=== PATIENT | female | born 1995 | race African-American/Black ===

== ENCOUNTER 2018-06-06 12:49 | Emergency (ER) | payer SELFPAY ==
[2018-06-06 13:38] LABS: Mean Corpuscular HGB CONC 28.9 g/dL (32.0-36.0); Mean Corpuscular Hemoglobin 21.3 pg (27.0-31.0); Mean Corpuscular Volume 73.6 fL (78.0-98.0); Mean Platelet Volume 10.1 fL (7.4-10.4); Platelet Count 301 thou/uL (130-400); RBC Distribution Width 20.1 % (11.5-14.5); Red Blood Cell (RBC) Count 4.23 mill/uL (4.20-5.40); White Blood Cell (WBC) Count 7.8 thou/uL (4.8-10.8)
[2018-06-06] MEDS ORDERED: Ondansetron PF 4 MG/2 ML Vial ONE (13:41)
[2018-06-06 13:53] LABS: ALT (SGPT) 11 U/L (8-55); AST (SGOT) 17 U/L (5-34); Albumin 3.9 g/dL (3.5-5.0); Alkaline Phosphatase 91 U/L (40-150); Anion Gap 10 mmol/L (10-20); BUN (Urea Nitrogen) 8 mg/dL (7.0-18.7); Bilirubin, Total Less than 0.2 mg/dL (0.2-1.2); Calc. Creatinine Clearance 0 mL/min (70-130); Calcium 9.2 mg/dL (7.8-10.44); Carbon Dioxide 22 mmol/L (22-29); Chloride 109 mmol/L (98-107); Estimated GFR-MDRD 90; Globulin 3.9 g/dL (2.4-3.5); Glucose 112 mg/dL (70-105); Potassium 3.1 mmol/L (3.5-5.1); Protein, Total 7.8 g/dL (6.0-8.3); Sodium 138 mmol/L (136-145)
[2018-06-06 13:55] LABS: Bilirubin Negative (Negative); Blood, Urine Large (Negative); Clarity TURBID (Clear); Glucose, Urine (Dipstick) Negative (Negative); Leukocyte Small (Negative); Nitrite Negative (Negative); Protein, Urine (Dipstick) 100 mg/dL (Neg-Trace); Specific Gravity, Urine 1.021 (1.002-1.036); Urobilinogen 0.2 mg/dL (0.2-1.0); pH, Urine 5.5 (5.0-9.0)
[2018-06-06 13:57] LABS: #Lymphocytes 1.1 thou/uL (1.20-3.40); #Monocytes 0.4 thou/uL (0.11-0.59); #Neutrophils 6.2 thou/uL (1.40-6.50); %Basophils 0.5 % (0.0-1.0); %Eosinophils 0.5 % (0.0-10.0); %Lymphocytes 14.2 % (21.0-51.0); %Monocytes 4.9 % (0.0-10.0); %Neutrophils 79.9 % (42.0-75.0); Anisocytosis SLIGHT = 6-15 cells (100X) (0-5/hpf); Hypochromia SLIGHT = 6-15 cells (100X) (0-5/hpf); MDiff Complete? YES; Microcytosis SLIGHT = 6-15 cells (100X) (0-5/hpf); PLT Morphology Comment Appears Adequate
[2018-06-06 14:00] LABS: RBC/HPF GREATER THAN 50-TNTC HPF (0-3)
[2018-06-06] MEDS ORDERED: Ketorolac Tromethamine 30 MG/ML VIAL ONE (14:01)
[2018-06-06 14:02] LABS: Pathc Cast-AUWi Flag 5.81 (0-2.49)
[2018-06-06] MEDS ORDERED: Potassium Chloride 20 MEQ TAB ONE (14:02)
[2018-06-06 14:03] LABS: Pregnancy Test - Urine (BHCG) Negative (Negative); Pregu Control Background? CLEAR/WHITE (CLR/WHITE); Pregu Control Bar Appear? YES (CONTROL BAR); Specific Gravity 1.021 (1.002-1.036)
[2018-06-06 14:12] LABS: Bacteria/HPF 1+ HPF (None Seen); Hyaline Casts/LPF NONE SEEN LPF (0-3 Hyaline)
[2018-06-06 14:15] LABS: Crystals/HPF 2+ URIC ACID HPF (Negative)
[2018-06-06] MEDS ORDERED: cefTRIAXone\\ROCEPHIN 1 GM VIAL ONE (14:56)
--- NOTE | 2018-06-06 15:37 | CT ---
CT ABDOMEN AND PELVIS WITHOUT IV CONTRAST: Date: 06/06/18 Multiple axial tomograms obtained through the abdomen and pelvis without IV enhancement. INDICATION: Right flank pain. Nausea. No comparison. FINDINGS: Lung bases clear. Liver and spleen unremarkable. Spleen is upper normal size, measured at up to 13.0 cm. Pancreas unrem arkable. There is right hydronephrosis. Dilatation of the right ureter is seen to the bladder. The bladder is not well distended and not well evaluated. There are tiny calcifications near the right distal ureter ; however, these are not confirmed to lie within the ureter. Etiology for the right hydronephrosis is not confirmed on this exam. Small bowel loops appear normal. Appendix is identified and is unremarkable. There is a large amount of stool in the right colon. The left colon is nondistended. Images through the pelvis show a prominent uterus. The uterus and adnexa cannot be adequately evaluat ed on this unenhanced study. No free fluid seen. IMPRESSION: Right hydronephrosis. Etiology for the right hydronephrosis is not confirmed on this exam. The uterus and adnexa appear prominent, which may be related. Consider postcontrast exam with delayed images fo llowing a urographic protocol to better assess the pelvic findings and collecting structures. POS: ISAI
== END 2018-06-06 15:52 | disposition home or self-care (01) ==
LOC: ERS 12:49
DX: N13.2 Hydronephrosis with renal and ureteral calculous obstruction (principal); R31.9 Hematuria, unspecified
CPT/HCPCS: 36415; 74176; 80053; 81003; 81015; 81025; 85025; 87077; 87086; 96361; 96365; 96375; J0696; J1885; J2405

== ENCOUNTER 2019-05-17 20:04 | Inpatient (IN) | payer MEDICAID ==
[2019-05-17] MEDS ORDERED: Lidocaine 1% (PF) 30 ML VIAL ONE (20:12)
[2019-05-17] MEDS: NS / Oxytocin 40 units/1000ml 1,000 ML IV SCH ×2 (20:20→21:42)
--- NOTE | 2019-05-17 20:29 | PDOC.LDHP ---
Labor and Delivery H&P HPI: Patient arrived by EMS straight to L[facility]3...HENRIETTA norman at introitus No PNC HX CS x2 24 yo AA CVS x 2 states "40 weeks" with imminenet delivery. Denies other issues. CS x2. Review of Systems: complete and as per HPI Current gestational age (weeks): 40 (by her account) Dating criteria: last menstrual period Grav: 4 Para: 3 OB History Details: CS x2, no prenata; care; HX twins x 1 Current complications: none Abnormal US findings: No Current medications: pre-tyrone vitamins Previous surgical history: low tranverse CS (X2) Social history: none - Physical Exam Vital signs reviewed and normal: yes (140/60 during delievry Pulse 96) General: NAD Abdomen: gravid [place] contractions every: FHTS were 130s; immeninet delivery - Vaginal Exam cm dilated: 10 Effacement: 100% Station: 3+ - Assessment L&D Assessment: term patient in labor No care - Plan Plan: admit to L&D, other (Delivery imminent; AROM at 2013...thin mec; NICU here for delivery; get OB labs)
--- NOTE | 2019-05-17 20:32 | PDOC.OPDEL ---
OB Operative/Delivery Note Delivery Dr/Surgeon: Rl Assist: Kosta Tesfaye (M3) Pre-Delivery Diagnosis: active labor, other (CS x2) Procedure/Post Delivery Dx: vaginal delivery after CS Weeks gestation: 40 (by her account) Anesthesia: none - Findings A Sex: female - 1 min: 8 - 5 min: 9 - Additional Findings/Plan Placenta delivered: spontaneous (Mac stained; Burton mechanism at 2022) Estimated blood loss: 200 Compilations/Other Findings: AROM just prior to Delivery: thin mec baby vigorous Delayed cord clamp for 1 min No NC 3vc, intact placenta Gases attempted but arterial cord gas not able to be obtained due to cord sample No perineal lacs noted NICU present Post delivery plan: routine recovery
[2019-05-17 20:33] LABS: Hemoglobin 9.2 g/dL (12.0-16.0); Mean Corpuscular HGB CONC 31.3 g/dL (32.0-36.0); Mean Corpuscular Hemoglobin 21.9 pg (27.0-31.0); Mean Platelet Volume 9.4 fL (7.4-10.4); Platelet Count 281 thou/uL (130-400); RBC Distribution Width 17.8 % (11.5-14.5); Red Blood Cell (RBC) Count 4.18 mill/uL (4.20-5.40); White Blood Cell (WBC) Count 11.2 thou/uL (4.8-10.8)
[2019-05-17] MEDS ORDERED: Lanolin Ointment 7 GM TUBE TOP PRN (20:35)
[2019-05-17] MEDS ORDERED: Preparation H Ointment 28 GM TUBE PR PRN (20:35)
[2019-05-17] MEDS ORDERED: Bisacodyl 10 MG SUPP PR PRN (20:35)
[2019-05-17] MEDS ORDERED: Benzocaine-Menthol 82.5 ML CAN TOP PRN (20:35)
[2019-05-17] MEDS ORDERED: Milk Of Magnesia 30 ML UDCUP PO PRN (20:35)
[2019-05-17] MEDS ORDERED: hydrALAZINE 20 MG/ML VIAL SLOW IVP PRN (20:35)
[2019-05-17] MEDS ORDERED: Acetaminophen/Codeine 30-300mg Tablet PO PRN ×2 (20:35)
[2019-05-17 21:05] LABS: Syphilis Antibody Nonreactive (Nonreactive); Syphilis Antibody Index 0.26 S/CO (<1.00 Non-Reactive)
[2019-05-17 21:08] VITALS: BMI 32.5
[2019-05-17 22:07] LABS: Amphetamine Not Detected (NotDetected); Barbiturates Screen Not Detected (NotDetected); Benzodiazepine Screen Not Detected (NotDetected); Cocaine Metabolite Screen Not Detected (NotDetected); Medtox Control Line Valid? VALID (VALID); Medtox Reader # READER 4; Methadone Not Detected (NotDetected); Methamphetamine Not Detected (NotDetected); Opiate Screen Not Detected (NotDetected); Oxycodone Screen Not Detected (NotDetected); Phencyclidine (PCP) Not Detected (NotDetected); THC/Cannabinoid Screen Not Detected (NotDetected); Tricyclic Screen Not Detected (NotDetected)
[2019-05-17] MEDS: Docusate Calcium (SURFAK) 240 MG CAP PO SCH (22:55)
[2019-05-17] MEDS: Ibuprofen 800 MG TAB PO SCH (22:55)
[2019-05-17 23:01] LABS: HBSAg Index 0.19 S/CO (0-0.99); HIV (1/2) Antibody/Antigen Non-Reactive (NonReactive); HIV 1/2 INDEX 0.05 S/CO (<1.00); Hep B Surf Ag Non-Reactive S/CO (NonReactive)
[2019-05-18] MEDS: Ibuprofen 800 MG TAB PO SCH ×3 (06:00→20:01)
[2019-05-18] MEDS ORDERED: Sodium Chloride 0.9% 10 ML ONE (06:10)
--- NOTE | 2019-05-18 06:33 | PDOC.PP ---
Post Progress Note Post Day #: 0 to 1 Subjective: Doing well PO intake tolerated: yes Flatus: yes Ambulation: yes Vital Signs (12 hours) Temp Pulse Resp BP 05/18/19 06:03 98.2 F 80 18 99/56 L 05/18/19 03:20 98.0 F 75 20 127/65 05/18/19 00:25 98.4 F 71 20 118/58 L 05/17/19 23:25 98.0 F 83 20 118/56 L 05/17/19 20:17 91 18 108/55 L Weight Weight 208 lb - Physical Examination General: NAD Abdominal: lochia, no distention, appropriately TTP Extremities: negative homans (B) Skin: no rash Neurological: no gross focal deficits Psychiatric: A&Ox3, normal affect Result Diagrams: 05/17/19 20:15 Additional Labs: Post Labs Blood Type O POSITIVE 05/17/19 21:48 Hep Bs Antigen Non-Reactive S/CO (NonReactive) 05/17/19 20:15 (1) Vaginal after Code(s): O34.219 - MATERNAL CARE FOR UNSP TYPE SCAR FROM PREVIOUS DEL Status: Acute - Assessment/Plan PPD1 this PM... after CS x2..doing well. baby well As we do not have any information, we will monitor today and plan on AM DC to home Friday (tomorrow) AM Labs reviewed
[2019-05-18] MEDS ORDERED: Adacel (T-DAP) 0.5 ML SYRINGE IM ONE (09:00)
[2019-05-18] MEDS ORDERED: FLU VACC QS2019-20(6MOS UP)/PF 60 MCG/0.5 ML SYRINGE IM ONE (09:00)
[2019-05-18] MEDS ORDERED: Measles/Mumps/Rubella 10 MCG/0.5 ML VIAL SC ONE (09:00)
[2019-05-18] MEDS ORDERED: Varicella virus, LIVE 0.5 ML VIAL SC ONE (09:00)
[2019-05-18] MEDS: Docusate Calcium (SURFAK) 240 MG CAP PO SCH ×2 (09:58→20:02)
[2019-05-18] MEDS: Prenatal Vitamin 1 TAB PO SCH (09:58)
[2019-05-18] MEDS: Ferrous Sulfate 325 MG TAB PO SCH ×2 (09:58→20:02)
[2019-05-19] MEDS: Ibuprofen 800 MG TAB PO SCH (05:14)
[2019-05-19 07:12] LABS: Hemoglobin 6.8 g/dL (12.0-16.0); Mean Corpuscular HGB CONC 30.8 g/dL (32.0-36.0); Mean Corpuscular Hemoglobin 22.1 pg (27.0-31.0); Mean Corpuscular Volume 71.6 fL (78.0-98.0); Mean Platelet Volume 8.6 fL (7.4-10.4); Platelet Count 216 thou/uL (130-400); RBC Distribution Width 17.7 % (11.5-14.5); Red Blood Cell (RBC) Count 3.08 mill/uL (4.20-5.40); White Blood Cell (WBC) Count 11.4 thou/uL (4.8-10.8)
--- NOTE | 2019-05-19 07:13 | DIS ---
DATE OF ADMISSION: 05/17/2019 DATE OF DISCHARGE: 05/19/2019 ADMITTING DIAGNOSES: 1. No care. 2. Prior x2. 3. Labor with imminent delivery. DISCHARGE DIAGNOSES: 1. No care. 2. Prior x2. 3. Labor with imminent delivery. PROCEDURE: Term spontaneous vaginal delivery. HOSPITAL COURSE: The patient is a 24-year-old female, who presented to Labor and Delivery with no care and in active labor. When she arrived, she was complete, +3 and quickly delivered a female by term spontaneous vaginal delivery. Her course has been uncomplicated. Today is day 2. She reports tolerating p.o., voiding on her own having decreased lochia and good pain control. PHYSICAL EXAMINATION: VITAL SIGNS: This morning, blood pressure is 100/62, temperature 98.0, pulse of 82, respiratory rate of 16. GENERAL: She appears to be in no acute distress. She is alert, oriented, cooperative, and pleasant to interact with. Fundus is firm. EXTREMITIES: Nontender nonedematous. Her post-delivery hemoglobin is not available. Her pre-delivery hemoglobin was 9.2, hematocrit 29.2 with MCV of 70, platelets 281,000. The patient will be discharged to home. Prior to that, we will be getting a CBC this morning just to re-evaluate her level of anemia. She will be going home on ibuprofen. She has been given instructions as she does not have any OB provider, [place] [facility] [place] for routine visit. She has been instructed to seek medical attention sooner if she has increased bleeding, pain, or fever. Job ID: [id number]
[2019-05-19] MEDS: Prenatal Vitamin 1 TAB PO SCH (07:56)
[2019-05-19] MEDS: Ferrous Sulfate 325 MG TAB PO SCH (07:56)
[2019-05-19] MEDS: Docusate Calcium (SURFAK) 240 MG CAP PO SCH (07:56)
--- NOTE | 2019-05-19 09:07 | PDOC.EVN ---
Event Note - Event Note Event Note: Lab check: HCT 22. Patient is ASX with pulse in 60s-70s. As asymptomatic, we will do outpatient /Fe suppliemnetation. OK for DC to home.
[2019-05-19 12:06] VITALS: BP 123/75; TEMP 98.2
--- NOTE | 2019-05-20 08:16 | PQF ---
[employer] Crystal Reports Winform [facility] JANICE CASTRO MD [id number] CLINICAL DOCUMENTATION CLARIFICATION FORM: POST DISCHARGE Addendum to original discharge summary date: 05/19/19 Late entry note date: 05/26/19 DATE:05-20-2019 ATTN:Cornelio Villeda Please exercise your independent, professional judgment in responding to the clarification form. Clinical indicators are provided on the bottom of this form for your review Can you please specify the type of anemia based on clinical indicators below. Please check appropriate box(s): [ x] Acute blood loss anemia [ ] Post-op anemia related to acute blood loss [x ] Other diagnosis please specify_chronic anemia [ ] Unable to determine In addition, please specify: Present on Admission (POA): [x ] Yes [ ] No [ ] Unable to determine For continuity of documentation, please document condition throughout progress notes and discharge summary. Thank You. CLINICAL INDICATORS: HP 05/[address] Shine patient arrived by EMS straight LDR3 Labor and delivery notes 05/[address] Shine vaginal delivery after CS Labor and delivery notes 05/[address] Shine AQH=[id number] DS 05/[address] Laureano CBC this morning just to re evaluate her level of anemia Laboratory: Hgb=9.2, 6.8 Hct=29.2, 22.0 QBL 275cc RISK FACTORS: HP- Low trabsverse CS x2 Delivery Note- vaginal deliver HP-40 weeks AOG TREATMENT: DS- CBC monitoring MAR- Ferrous Sulfate (This form is maintained as a part of the permanent medical record) 2014 [employer] All Rights Reserved Parul [email or web address] [not provided] MTDD
== END 2019-05-19 13:40 | disposition home or self-care (01) | DRG 806 ==
LOC: L&D/OP 20:04 → L&D 20:43 → EEVIPCON 20:43 → 3SW 23:26
PROVIDERS: ADMIT Obstetrics & Gynecology; ATTEND Obstetrics & Gynecology
PROC: 10E0XZZ Delivery of Products of Conception, External Approach (ICD-10-PCS; principal; 2019-05-18)
PROC: 10907ZC Drainage of Amniotic Fluid, Therapeutic from Products of Conception, Via Natural or Artificial Opening (ICD-10-PCS; 2019-05-18)
PROC: 3E02340 Introduction of Influenza Vaccine into Muscle, Percutaneous Approach (ICD-10-PCS; 2019-05-18)
PROC: 3E0234Z Introduction of Serum, Toxoid and Vaccine into Muscle, Percutaneous Approach (ICD-10-PCS; 2019-05-18)
DX: O77.0 Labor and delivery complicated by meconium in amniotic fluid (principal); D62 Acute posthemorrhagic anemia; Z37.0 Single live birth; O34.211 Maternal care for low transverse scar from previous cesarean delivery; Z3A.40 40 weeks gestation of pregnancy; Z23 Encounter for immunization; O99.02 Anemia complicating childbirth
CPT/HCPCS: 36415; 80306; 85027; 86762; 86780; 86850; 86900; 86901; 87340; 87389; 88307; 99285; J2001

== ENCOUNTER 2023-10-07 17:59 | Inpatient (IN) | payer BC, MEDICAID ==
[2023-10-07] MEDS ORDERED: Acetaminophen 500 MG TAB ONE (19:46)
[2023-10-07] MEDS ORDERED: Ketorolac Tromethamine 30 MG (1 mL) VIAL ONE (20:24)
[2023-10-07 23:06] VITALS: BMI 34.4
[2023-10-08] MEDS: Ondansetron PF 4 MG/2 ML Vial IVP PRN (00:58)
[2023-10-08] MEDS: Morphine 2 MG/ML VIAL SLOW IVP PRN (00:59)
[2023-10-08] MEDS: Sodium Chloride 0.9% 1,000 ML IV SCH (00:59)
[2023-10-08] MEDS: Benzocaine 20% Spray 60 ML CAN PO SCH (03:50)
[2023-10-08] MEDS: Ketorolac Tromethamine 30 MG (1 mL) VIAL IVP PRN (03:50)
[2023-10-08] MEDS: Polyethylene Glycol 3350 17 GM Packet PO SCH (07:49)
[2023-10-08] MEDS: Senokot S 8.6-50 MG TAB PO SCH (07:50)
[2023-10-08] MEDS ORDERED: MD-Gastroview 120 ML BOT ONE (07:52)
[2023-10-08 08:06] LABS: #Monocytes 1.5 thou/uL (0.11-0.59); #Neutrophils 9.9 thou/uL (1.40-6.50); %Basophils 0.2 % (0.0-1.0); %Eosinophils 0.1 % (0.0-10.0); %Lymphocytes 9.1 % (21.0-51.0); %Monocytes 12.1 % (0.0-10.0); %Neutrophils 77.9 % (42.0-75.0); Hematocrit 23.9 % (36.0-47.0); Hemoglobin 6.9 g/dL (12.0-16.0); Mean Corpuscular HGB CONC 28.9 g/dL (32.0-36.0); Mean Corpuscular Hemoglobin 21.6 pg (27.0-31.0); Mean Corpuscular Volume 74.9 fl (78.0-98.0); Mean Platelet Volume 9.1 fL (7.4-10.4); Platelet Count 266 10x3/uL (130-400); RBC Distribution Width 18.5 % (11.5-14.5); Red Blood Cell (RBC) Count 3.19 mill/uL (4.20-5.40); White Blood Cell (WBC) Count 12.7 10x3/uL (4.8-10.8)
[2023-10-08 08:22] LABS: INR-International Normal Ratio 1.3
[2023-10-08 08:24] LABS: ALT (SGPT) 10 U/L (8-55); AST (SGOT) 18 U/L (5-34); Albumin 3.1 g/dL (3.5-5.0); Alkaline Phosphatase 58 U/L (40-110); Anion Gap 11 mmol/L (10-20); BUN (Urea Nitrogen) 9 mg/dL (7.0-18.7); Bilirubin, Total 0.5 mg/dL (0.2-1.2); Calc. Creatinine Clearance 183 mL/min (70-130); Calcium 8.2 mg/dL (7.8-10.44); Carbon Dioxide 23 mmol/L (22-29); Chloride 108 mmol/L (98-107); Estimated GFR 117; Globulin 3.2 g/dL (2.4-3.5); Glucose 92 mg/dL (70-105); Magnesium 2.2 mg/dL (1.6-2.6); Phosphorus 1.6 mg/dL (2.3-4.7); Potassium 3.5 mmol/L (3.5-5.1); Protein, Total 6.3 g/dL (6.0-8.3); Sodium 138 mmol/L (136-145)
[2023-10-08 08:30] LABS: CellaVision Operator ID LAB.KW3; Hypochromia SLIGHT = 6-15 cells HPF (0-5); Platelet Adequacy Comment Platelets Normal; Schistocytes SLIGHT = 2-5 cells HPF (0-1)
[2023-10-08] MEDS: Scopolamine 1 mg/72 hour Patch TD SCH (09:30)
[2023-10-08] MEDS: Potassium Phosphate 30 MMOL in Sodium Chloride 0.9% 250 ML 250 ML IVPB SCH (18:15)
[2023-10-08] MEDS: Phenol 177 ML BOT PO PRN (21:26)
[2023-10-09 05:18] LABS: #Eosinphils 0.1 thou/uL (0.0-0.7); #Neutrophils 8.4 thou/uL (1.40-6.50); %Basophils 0.2 % (0.0-1.0); %Eosinophils 0.5 % (0.0-10.0); %Lymphocytes 7.2 % (21.0-51.0); %Monocytes 9.6 % (0.0-10.0); %Neutrophils 82.1 % (42.0-75.0); Hematocrit 25.7 % (36.0-47.0); Hemoglobin 7.3 g/dL (12.0-16.0); Mean Corpuscular HGB CONC 28.4 g/dL (32.0-36.0); Mean Corpuscular Hemoglobin 21.5 pg (27.0-31.0); Mean Corpuscular Volume 75.8 fl (78.0-98.0); Mean Platelet Volume 9.6 fL (7.4-10.4); Platelet Count 304 10x3/uL (130-400); RBC Distribution Width 18.8 % (11.5-14.5); Red Blood Cell (RBC) Count 3.39 mill/uL (4.20-5.40); White Blood Cell (WBC) Count 10.3 10x3/uL (4.8-10.8)
[2023-10-09 05:24] LABS: INR-International Normal Ratio 1.2
[2023-10-09 05:37] LABS: Anion Gap 14 mmol/L (10-20); BUN (Urea Nitrogen) 11 mg/dL (7.0-18.7); Calc. Creatinine Clearance 193 mL/min (70-130); Calcium 8.5 mg/dL (7.8-10.44); Carbon Dioxide 24 mmol/L (22-29); Chloride 110 mmol/L (98-107); Estimated GFR 121; Glucose 92 mg/dL (70-105); Magnesium 2.4 mg/dL (1.6-2.6); Phosphorus 1.7 mg/dL (2.3-4.7); Potassium 3.6 mmol/L (3.5-5.1); Sodium 144 mmol/L (136-145)
[2023-10-10] MEDS: Acetaminophen 325 MG TAB PO SCH (09:14)
[2023-10-10 13:30] VITALS: BP 124/55; TEMP 98.7
[2023-10-10] MEDS ORDERED: Enoxaparin 40 MG (0.4 mL) SYRINGE SC SCH (21:00)
== END 2023-10-10 16:10 | disposition home or self-care (01) | DRG 390 ==
LOC: ERS 17:59 → SURG A 20:29
PROVIDERS: ADMIT Student in an Organized Health Care Education/Training Program; ATTEND Student in an Organized Health Care Education/Training Program
PROC: 0D9670Z Drainage of Stomach with Drainage Device, Via Natural or Artificial Opening (ICD-10-PCS; principal; 2023-10-07)
DX: K56.609 Unspecified intestinal obstruction, unspecified as to partial versus complete obstruction (principal); K52.9 Noninfective gastroenteritis and colitis, unspecified; Z98.891 History of uterine scar from previous surgery; Z98.890 Other specified postprocedural states
CPT/HCPCS: 36415; 74018; 74019; 74250; 80048; 80053; 83735; 84100; 85025; 85610; 85730; 86850; 86900; 86901; 96374; J1885; J2272; J2405; J7050; Q9963

== ENCOUNTER 2023-11-02 11:56 | Inpatient (IN) | payer BC ==
[~2023-11-02 11:56] MED LIST: Iopamidol-370 76% 500 ML MDV (1 ML CHARGE) ONE
[2023-11-02 12:54] LABS: #Basophils Less than 0.03 10x3/uL (0.0-0.2); #Eosinphils Less than 0.03 10x3/uL (0.0-0.7); %Basophils 0.2 % (0.0-1.0); %Lymphocytes 10.6 % (21.0-51.0); %Neutrophils 82.9 % (42.0-75.0); Hematocrit 30.8 % (36.0-47.0); Hemoglobin 8.8 g/dL (12.0-16.0); Mean Corpuscular HGB CONC 28.6 g/dL (32.0-36.0); Mean Corpuscular Hemoglobin 20.7 pg (27.0-31.0); Mean Corpuscular Volume 72.5 fL (78.0-98.0); Mean Platelet Volume 9.3 fL (7.4-10.4); Platelet Count 402 10x3/uL (130-400); RBC Distribution Width 18.6 % (11.5-14.5); Red Blood Cell (RBC) Count 4.25 mill/uL (4.20-5.40)
[2023-11-02 12:55] LABS: BHCG - Serum Negative (NEGATIVE); Pregs Control Background? CLEAR/WHITE (CLR/WHITE); Pregs Control Bar Appear? YES (CONTROL BAR)
[2023-11-02 13:03] LABS: ALT (SGPT) 13 U/L (8-55); AST (SGOT) 18 U/L (5-34); Albumin 3.8 g/dL (3.5-5.0); Alkaline Phosphatase 75 U/L (40-110); Anion Gap 12 mmol/L (10-20); BUN (Urea Nitrogen) 6 mg/dL (7.0-18.7); Bilirubin, Total 0.2 mg/dL (0.2-1.2); Calc. Creatinine Clearance 0 mL/min (70-130); Carbon Dioxide 23 mmol/L (22-29); Chloride 106 mmol/L (98-107); Estimated GFR 113; Globulin 3.4 g/dL (2.4-3.5); Glucose 116 mg/dL (70-105); Lipase 16 U/L (8-78); Potassium 3.4 mmol/L (3.5-5.1); Protein, Total 7.2 g/dL (6.0-8.3); Sodium 138 mmol/L (136-145)
[2023-11-02 13:07] LABS: Troponin I Less than 0.010 ng/mL (< 0.028)
[2023-11-02] MEDS ORDERED: Ketorolac Tromethamine 30 MG (1 mL) VIAL ONE (13:10)
[2023-11-02] MEDS ORDERED: Ondansetron PF 4 MG/2 ML Vial ONE ×2 (13:10→13:12)
[2023-11-02] MEDS ORDERED: Morphine 4 MG/ML VIAL ONE (13:11)
[2023-11-02 13:15] LABS: Anisocytosis SLIGHT = 6-15 cells HPF (0-5); Hypochromia SLIGHT = 6-15 cells HPF (0-5); Microcytosis SLIGHT = 6-15 cells HPF (0-5); Platelet Adequacy Comment Platelets Normal; Polychromasia SLIGHT = 2-3 cells HPF (0-2); Target Cells SLIGHT = 2-5 cells HPF (0-1)
[2023-11-02] MEDS ORDERED: Piperacillin/Tazobactam 3.375 GM VIAL ONE (14:43)
[2023-11-02] MEDS ORDERED: Sodium Chloride 0.9% 100 ML ONE (14:44)
[2023-11-02] MEDS ORDERED: HYDROmorphone 0.5 MG/0.5 ML SYRINGE ONE (14:53)
[2023-11-02 15:10] LABS: Bacteria/HPF None Seen HPF (None Seen); Bilirubin Negative (Negative); CAUTI Indications for Culture Pelvic or flank pain; Glucose, Urine (Dipstick) Normal (Negative); Ketone, Urine Negative (Negative); Leukocyte Negative Leu/uL (Negative); Nitrite Negative (Negative); Protein, Urine (Dipstick) 20 mg/dL (Neg-Trace); RBC/HPF Greater than 50 HPF (0-3); Specific Gravity, Urine 1.014 (1.002-1.036); Squamous Epithelial 0-3 HPF (0-3); Urobilinogen Normal mg/dL (Less than 2)
[2023-11-02 15:26] LABS: Clarity Very Cloudy (Clear)
[2023-11-02 15:27] LABS: Blood, Urine Large (Negative)
[2023-11-02 15:36] LABS: Urine Culture Reflex No No
[2023-11-02] MEDS ORDERED: Electrolyte Replacement Protocol FS SCH (16:00)
[2023-11-02 16:40] VITALS: BMI 28.0
[2023-11-02] MEDS: Potassium Chloride 20 MEQ TAB PO SCH (17:09)
[2023-11-02] MEDS: Piperacillin/Tazobactam 3.375 GM in Sodium Chloride 0.9% 100 ML IVPB SCH (17:10)
[2023-11-02] MEDS: Morphine 2 MG/ML VIAL SLOW IVP PRN (17:25)
[2023-11-02] MEDS ORDERED: Piperacillin/Tazobactam 3.375 GM in Sodium Chloride 0.9% 100 ML IVPB SCH (20:00)
[2023-11-02] MEDS: Famotidine/PF 20 mg/2ml Vial SLOW IVP SCH (20:39)
[2023-11-02] MEDS: NS 0.9% w/ 20 MEQ KCL 1,000 ML/1,000 ML BAG IV SCH (20:39)
[2023-11-02] MEDS: Ketorolac Tromethamine 30 MG (1 mL) VIAL IVP PRN (20:40)
[2023-11-03 05:38] LABS: #Basophils 0.03 10x3/uL (0.0-0.2); #Eosinphils Less than 0.03 10x3/uL (0.0-0.7); %Basophils 0.2 % (0.0-1.0); %Eosinophils 0.2 % (0.0-10.0); %Lymphocytes 8.6 % (21.0-51.0); %Neutrophils 82.6 % (42.0-75.0); Hematocrit 24.1 % (36.0-47.0); Hemoglobin 6.9 g/dL (12.0-16.0); Mean Corpuscular HGB CONC 28.6 g/dL (32.0-36.0); Mean Corpuscular Hemoglobin 20.9 pg (27.0-31.0); Mean Platelet Volume 9.7 fL (7.4-10.4); Platelet Count 309 10x3/uL (130-400); RBC Distribution Width 18.6 % (11.5-14.5)
[2023-11-03 06:20] LABS: Hypochromia SLIGHT = 6-15 cells HPF (0-5); Microcytosis SLIGHT = 6-15 cells HPF (0-5); Platelet Adequacy Comment Platelets Normal; Polychromasia SLIGHT = 2-3 cells HPF (0-2)
[2023-11-03 06:26] LABS: Anion Gap 10 mmol/L (10-20); BUN (Urea Nitrogen) 7 mg/dL (7.0-18.7); Calc. Creatinine Clearance 132 mL/min (70-130); Carbon Dioxide 25 mmol/L (22-29); Chloride 109 mmol/L (98-107); Estimated GFR 102; Glucose 102 mg/dL (70-105); Potassium 3.9 mmol/L (3.5-5.1); Sodium 140 mmol/L (136-145)
[2023-11-03] MEDS: HYDROcodone/Acetaminophen 5/325 mg Tablet PO PRN (09:08)
[2023-11-03 13:42] LABS: Hematocrit 23.8 % (36.0-47.0); Hemoglobin 6.8 g/dL (12.0-16.0)
[2023-11-03] MEDS: Acetaminophen 325 MG TAB PO PRN (16:17)
[2023-11-03] MEDS: Ondansetron PF 4 MG/2 ML Vial IVP PRN (22:01)
[2023-11-04 04:29] LABS: #Basophils 0.04 10x3/uL (0.0-0.2); %Basophils 0.3 % (0.0-1.0); %Eosinophils 1.2 % (0.0-10.0); %Lymphocytes 11.9 % (21.0-51.0); %Neutrophils 74.2 % (42.0-75.0); Hematocrit 23.2 % (36.0-47.0); Hemoglobin 6.8 g/dL (12.0-16.0); Mean Corpuscular HGB CONC 29.3 g/dL (32.0-36.0); Mean Corpuscular Hemoglobin 21.8 pg (27.0-31.0); Mean Corpuscular Volume 74.4 fL (78.0-98.0); Mean Platelet Volume 9.5 fL (7.4-10.4); Platelet Count 247 10x3/uL (130-400); Red Blood Cell (RBC) Count 3.12 mill/uL (4.20-5.40)
[2023-11-04 04:41] LABS: Anion Gap 11 mmol/L (10-20); BUN (Urea Nitrogen) 7 mg/dL (7.0-18.7); Calc. Creatinine Clearance 146 mL/min (70-130); Calcium 8.2 mg/dL (7.8-10.44); Carbon Dioxide 23 mmol/L (22-29); Chloride 108 mmol/L (98-107); Estimated GFR 115; Glucose 92 mg/dL (70-105); Iron 11 ug/dL (50-170); Iron Binding Capacity, Total 239 mcg/dL (265-497); Potassium 3.2 mmol/L (3.5-5.1); Sodium 139 mmol/L (136-145)
[2023-11-04 04:58] LABS: Anisocytosis SLIGHT = 6-15 cells HPF (0-5); Hypochromia SLIGHT = 6-15 cells HPF (0-5); Microcytosis SLIGHT = 6-15 cells HPF (0-5); Platelet Adequacy Comment Platelets Normal; Polychromasia SLIGHT = 2-3 cells HPF (0-2)
[2023-11-04 05:04] LABS: Ferritin 51.88 ng/mL (10-291); Thyroid Stimulating Hormone 0.8818 uIU/mL (0.35-4.94)
[2023-11-04] MEDS ORDERED: Iron Sucrose Complex 200 MG in Sodium Chloride 0.9% 100 ML IVPB SCH (07:45)
[2023-11-04] MEDS: Potassium Chloride 20 MEQ TAB PO SCH (08:40)
[2023-11-04] MEDS: Famotidine 20 MG TAB PO SCH (08:41)
[2023-11-04] MEDS: Potassium Chloride 20 MEQ in Premix 1 BAG IVPB SCH (08:42)
[2023-11-04] MEDS: Senokot S 8.6-50 MG TAB PO SCH (10:07)
[2023-11-04] MEDS: Ferrous Sulfate 325 MG TAB PO SCH (17:35)
[2023-11-04] MEDS: Iron, Sodium Ferric Gluconate 250 MG in Sodium Chloride 0.9% 250 ML 250 ML IVPB SCH (23:45)
[2023-11-05 05:23] LABS: #Basophils 0.03 10x3/uL (0.0-0.2); %Basophils 0.3 % (0.0-1.0); %Eosinophils 1.4 % (0.0-10.0); %Lymphocytes 11.5 % (21.0-51.0); %Monocytes 11.5 % (0.0-10.0); %Neutrophils 74.9 % (42.0-75.0); Hematocrit 25.9 % (36.0-47.0); Hemoglobin 7.7 g/dL (12.0-16.0); Mean Corpuscular HGB CONC 29.7 g/dL (32.0-36.0); Mean Corpuscular Hemoglobin 21.9 pg (27.0-31.0); Mean Corpuscular Volume 73.8 fL (78.0-98.0); Mean Platelet Volume 9.9 fL (7.4-10.4); Platelet Count 225 10x3/uL (130-400); RBC Distribution Width 19.1 % (11.5-14.5); Red Blood Cell (RBC) Count 3.51 mill/uL (4.20-5.40)
[2023-11-05 06:01] LABS: Anisocytosis SLIGHT = 6-15 cells HPF (0-5); Hypochromia SLIGHT = 6-15 cells HPF (0-5); Microcytosis SLIGHT = 6-15 cells HPF (0-5); Platelet Adequacy Comment Platelets Normal; Polychromasia SLIGHT = 2-3 cells HPF (0-2)
[2023-11-05 06:02] LABS: Anion Gap 11 mmol/L (10-20); BUN (Urea Nitrogen) 6 mg/dL (7.0-18.7); Calc. Creatinine Clearance 167 mL/min (70-130); Calcium 8.5 mg/dL (7.8-10.44); Carbon Dioxide 20 mmol/L (22-29); Chloride 108 mmol/L (98-107); Estimated GFR 122; Glucose 102 mg/dL (70-105); Potassium 3.4 mmol/L (3.5-5.1); Sodium 136 mmol/L (136-145)
[2023-11-05] MEDS: Potassium Chloride 20 MEQ TAB PO SCH (08:28)
[2023-11-05] MEDS ORDERED: Iopamidol-370 76% 500 ML MDV (1 ML CHARGE) ONE (10:04)
[2023-11-05] MEDS ORDERED: Iron Sucrose Complex 200 MG in Sodium Chloride 0.9% 100 ML IVPB SCH (11:15)
[2023-11-05] MEDS: Lactated Ringer's 1,000 ML IV SCH (14:34)
[2023-11-05] MEDS: Iron, Sodium Ferric Gluconate 250 MG in Sodium Chloride 0.9% 250 ML 250 ML IVPB SCH (16:02)
[2023-11-05] MEDS ORDERED: Piperacillin/Tazobactam 3.375 GM VIAL ONE (17:14)
[2023-11-05] MEDS ORDERED: Sodium Chloride 0.9% 100 ML ONE (17:14)
[2023-11-05] MEDS ORDERED: EPINEPHrine 1 MG/ML VIAL ONE (17:46)
[2023-11-05] MEDS ORDERED: Bupivacaine PF 0.5% 30 ML VIAL ONE (17:46)
[2023-11-05] MEDS ORDERED: HYDROmorphone 2 MG/ML VIAL SLOW IVP PRN ×2 (17:50→19:46)
[2023-11-05] MEDS ORDERED: Ondansetron HCl/PF 4 MG/2 ML Vial IVP PRN ×2 (17:50→19:46)
[2023-11-05] MEDS ORDERED: Promethazine HCl 25 MG/ML VIAL IM PRN ×2 (17:50→19:46)
[2023-11-05] MEDS ORDERED: Rocuronium Bromide 10 MG/ML (10ML VIAL) ONE (17:58)
[2023-11-05] MEDS ORDERED: PROPOFOL 20 ML ONE (17:58)
[2023-11-05] MEDS ORDERED: fentaNYL 50 mcg/mL 1 mL Vial ONE ×3 (17:58→20:01)
[2023-11-05] MEDS ORDERED: Lidocaine 1% PF 5 ML VIAL ONE (17:58)
[2023-11-05] MEDS ORDERED: Ondansetron PF 4 MG/2 ML Vial ONE (17:58)
[2023-11-05] MEDS ORDERED: Dexamethasone 20 MG/5 ML VIAL ONE (17:58)
[2023-11-05] MEDS ORDERED: SUGAMMADEX SODIUM 200 MG/2 ML VIAL ONE (19:29)
[2023-11-05] MEDS ORDERED: Meperidine HCl/PF 25 MG/ML VIAL SLOW IVP PRN (19:46)
[2023-11-05] MEDS: Ketorolac Tromethamine 30 MG (1 mL) VIAL IVP SCH (21:42)
[2023-11-05] MEDS: Acetaminophen 500 MG TAB PO SCH (21:43)
[2023-11-05] MEDS: Potassium Chloride 40 MEQ in Sodium Chloride 0.45% 1,000 ML IV SCH (21:56)
[2023-11-05] MEDS: Scopolamine 1 mg/72 hour Patch TD SCH (21:57)
[2023-11-06] MEDS: Morphine 4 MG/ML VIAL SLOW IVP PRN (00:11)
[2023-11-06] MEDS: Ketorolac Tromethamine 30 MG (1 mL) VIAL IVP SCH (02:47)
[2023-11-06 05:15] LABS: #Basophils Less than 0.03 10x3/uL (0.0-0.2); #Eosinphils Less than 0.03 10x3/uL (0.0-0.7); %Basophils 0.1 % (0.0-1.0); %Lymphocytes 5.3 % (21.0-51.0); %Monocytes 2.4 % (0.0-10.0); %Neutrophils 91.7 % (42.0-75.0); Hematocrit 28.5 % (36.0-47.0); Hemoglobin 8.5 g/dL (12.0-16.0); Mean Corpuscular HGB CONC 29.8 g/dL (32.0-36.0); Mean Corpuscular Hemoglobin 22.4 pg (27.0-31.0); Mean Platelet Volume 9.5 fL (7.4-10.4); Platelet Count 262 10x3/uL (130-400); RBC Distribution Width 19.7 % (11.5-14.5)
[2023-11-06 05:35] LABS: Anion Gap 14 mmol/L (10-20); BUN (Urea Nitrogen) 6 mg/dL (7.0-18.7); Calc. Creatinine Clearance 160 mL/min (70-130); Calcium 8.9 mg/dL (7.8-10.44); Carbon Dioxide 21 mmol/L (22-29); Chloride 104 mmol/L (98-107); Estimated GFR 121; Glucose 118 mg/dL (70-105); Potassium 4.6 mmol/L (3.5-5.1); Sodium 134 mmol/L (136-145)
[2023-11-06] MEDS ORDERED: Potassium Chloride 20 MEQ in Sodium Chloride 0.45% 1,000 ML IV SCH (07:45)
[2023-11-06] MEDS: 1/2 NS w/Potassium 20 mEq 1,000 ML IV SCH (08:23)
[2023-11-06] MEDS: traMADol HCl 50 MG TAB PO PRN (23:37)
[2023-11-07 04:05] LABS: #Basophils 0.05 10x3/uL (0.0-0.2); #Eosinphils Less than 0.03 10x3/uL (0.0-0.7); %Basophils 0.5 % (0.0-1.0); %Eosinophils 0.2 % (0.0-10.0); %Lymphocytes 22.8 % (21.0-51.0); %Monocytes 12.1 % (0.0-10.0); Hematocrit 25.3 % (36.0-47.0); Hemoglobin 7.6 g/dL (12.0-16.0); Mean Corpuscular Hemoglobin 22.1 pg (27.0-31.0); Mean Corpuscular Volume 73.5 fL (78.0-98.0); Mean Platelet Volume 9.9 fL (7.4-10.4); Platelet Count 271 10x3/uL (130-400); RBC Distribution Width 19.8 % (11.5-14.5); Red Blood Cell (RBC) Count 3.44 mill/uL (4.20-5.40)
[2023-11-07 04:17] LABS: Anion Gap 11 mmol/L (10-20); BUN (Urea Nitrogen) 14 mg/dL (7.0-18.7); Calc. Creatinine Clearance 155 mL/min (70-130); Calcium 8.8 mg/dL (7.8-10.44); Carbon Dioxide 22 mmol/L (22-29); Chloride 108 mmol/L (98-107); Estimated GFR 120; Glucose 103 mg/dL (70-105); Potassium 4.1 mmol/L (3.5-5.1); Sodium 137 mmol/L (136-145)
[2023-11-07 04:40] LABS: Anisocytosis SLIGHT = 6-15 cells HPF (0-5); Hypochromia SLIGHT = 6-15 cells HPF (0-5); Microcytosis SLIGHT = 6-15 cells HPF (0-5); Ovalocytes SLIGHT = 2-5 cells HPF (0-1); Platelet Adequacy Comment Platelets Normal; Polychromasia SLIGHT = 2-3 cells HPF (0-2); Target Cells SLIGHT = 2-5 cells HPF (0-1)
[2023-11-07 07:49] VITALS: BP 117/74; TEMP 97.5
== END 2023-11-07 14:29 | disposition home or self-care (01) | DRG 854 ==
LOC: ERS 11:56 → T4-A 15:15 → OBSVTOIN 11-03 15:24
PROVIDERS: ADMIT Family Medicine; ATTEND Internal Medicine
PROC: 30233N1 Transfusion of Nonautologous Red Blood Cells into Peripheral Vein, Percutaneous Approach (ICD-10-PCS; 2023-11-03)
PROC: 0DTJ4ZZ Resection of Appendix, Percutaneous Endoscopic Approach (ICD-10-PCS; principal; 2023-11-05)
PROC: 0DNJ4ZZ Release Appendix, Percutaneous Endoscopic Approach (ICD-10-PCS; 2023-11-05)
PROC: 3E033XZ Introduction of Vasopressor into Peripheral Vein, Percutaneous Approach (ICD-10-PCS; 2023-11-05)
DX: A41.9 Sepsis, unspecified organism (principal); D62 Acute posthemorrhagic anemia; G61.0 Guillain-Barre syndrome; K50.00 Crohn's disease of small intestine without complications; K56.609 Unspecified intestinal obstruction, unspecified as to partial versus complete obstruction; K35.80 Unspecified acute appendicitis; E87.1 Hypo-osmolality and hyponatremia; K52.9 Noninfective gastroenteritis and colitis, unspecified; E87.6 Hypokalemia; D50.9 Iron deficiency anemia, unspecified; Z98.891 History of uterine scar from previous surgery; Z98.890 Other specified postprocedural states
CPT/HCPCS: 36415; 36430; 74177; 80048; 80053; 81001; 82607; 82728; 83540; 83550; 83690; 84443; 84484; 84703; 85025; 86140; 86850; 86900; 86901; 88304; 93005; 96361; 96365; 96368; 96375; 96376; A4649; G0378; J0171; J0665; J1100; J1170; J1885; J2270; J2272; J2405; J2543; J2704; J2916; J3010; J3480; J3490; J7050; J7120; P9016; Q9967; S0028